=== PATIENT | male | born 1950 | race Caucasian/White ===

== ENCOUNTER → 2023-12-10 07:08 | Outpatient (REF) | payer MEDICARE, OTHER, SELFPAY | LOC: HWRCS 07:08 | PROVIDERS: ATTENDING PHYSICIAN Internal Medicine; FAMILY PHYSICIAN Internal Medicine | DX: I25.10 Atherosclerotic heart disease of native coronary artery without angina pectoris (principal); I10 Essential (primary) hypertension; R06.09 Other forms of dyspnea | CPT/HCPCS: 93306 ==

== ENCOUNTER 2024-10-24 06:17 | Day surgery (SDC) | payer MEDICARE, OTHER, SELFPAY | END 2024-10-24 09:26 | disposition home or self-care (01) | LOC: GI 06:17 | PROVIDERS: ATTENDING PHYSICIAN Specialist; FAMILY PHYSICIAN Internal Medicine | DX: K57.30 Diverticulosis of large intestine without perforation or abscess without bleeding (principal); K51.00 Ulcerative (chronic) pancolitis without complications | CPT/HCPCS: 45380; 88305 ==